=== PATIENT | female | born 1945 | race Caucasian/White ===

== ENCOUNTER 2016-02-23 05:48 | Day surgery (SDC) | payer MEDICARE, OTHER ==
[2016-02-23] VITALS (9 sets, daily range): BP systolic 105–128; BP diastolic 47–99; PULSE 60–69; RESP 12–19; O2SAT 93–99
[~2016-02-23] VITALS: Ht 167.6 cm; Wt 81.9 kg
[~2016-02-23 05:48] MED LIST: ALBU18HF INH; BECL8.7A6 INHALATION; BUTA1CAP16 PO; CHOL100045 PO; CYAN10008 PO; EXCEDRINE MIGRAINE PO; IBUP200C PO; Lactated Ringer's 1,000 ML IV ONE; OMEG-38 PO; RANI150C4 PO; SERAVENT INH; SIMV40TA5 PO
[2016-02-23] MEDS ORDERED: Ropivacaine-PF 0.5% 30 mL Inj ONE (05:49)
[2016-02-23] MEDS ORDERED: Propofol 10,000 mCg/mL 20 mL Inj ONE (05:49)
[2016-02-23] MEDS ORDERED: Lidocaine PF 1% 30 mL Inj ONE (05:49)
[2016-02-23] MEDS ORDERED: Dexamethasone 4 mg/mL Inj ONE (05:49)
[2016-02-23] MEDS ORDERED: Ketamine 10 mg/mL 20 mL Inj ONE (05:49)
[2016-02-23] MEDS ORDERED: Ondansetron 2 mg/mL 2 mL Inj ONE (05:49)
[2016-02-23] MEDS ORDERED: LEVA15HF5 INHALATION (06:13)
[2016-02-23] MEDS ORDERED: Clindamycin 600 mg/50 mL D5W Premix IV ONE (06:56)
[2016-02-23] MEDS ORDERED: HYDR-3797 PO (07:27)
[2016-02-23] MEDS ORDERED: SERT50TA9 PO (07:27)
[2016-02-23] MEDS ORDERED: RIZA5TAB18 PO (07:27)
[2016-02-23] MEDS ORDERED: Bupivacaine-MPF 0.5% W/EPI 30 mL Inj INFILTRATE ONE (07:51)
[2016-02-23] MEDS ORDERED: Lactated Ringer's 1,000 ML IV SCH (08:46)
[2016-02-23] MEDS ORDERED: Lactated Ringer's 500 ML IV PRN (08:46)
--- NOTE | 2016-02-23 08:46 | PCM.HPANE ---
Patient Data Date of Service: Feb 23, 2016 Surgeon Admitting Provider: Attending Provider:Marcelino Mcneill DPM Primary Care Physician:Peggy Hayward Other Provider:Demetrius Blackman Anesthesia Reason for Visit Left Lis Franc Fracture / Dislocation Ht/WT & BMI Height (Feet): 5 Height (Inches): 6 Weight (Kilograms): 81.9 Body Mass Index 29.00 Allergies Coded Allergies: Penicillins (Verified Allergy, Severe, HIVES,SKIN RASH, 02/19/16) gabapentin (Verified Allergy, Severe, RASH, 02/19/16) ibuprofen (Verified Allergy, Severe, STOMACH ISSUES, 02/23/16) codeine (Verified Adverse Reaction, Severe, GI UPSET, 02/19/16) Uncoded Allergies: OPIOIDS (Allergy, Severe, CONSTIPATION, 02/23/16) Past Anesthesia History Anesthesia History: Positive for:: Anesthesia Reactions (PONV), Denies:: Malignant Hyperthermia Diabetes History Hx Diabetes?: No MRSA MRSA: No Medications Hypertension Medication: No Home Meds Incl Beta Kristal: No Reported Medications Sertraline HCl (Sertraline)50 Mg Clmopq73 Mg PO DAILY #90 02/23/16 Hydroxyzine Pamoate (HydrOXYzine Pamoate)25 Mg Ewxreqg11 Mg PO HS #30 02/23/16 Rizatriptan ODT (Rizatriptan)5 Mg Tablet5 Mg PO prn #6 02/23/16 Levalbuterol Tartrate (Xopenex Hfa)15 Gm Hfa.aer.ad2 Puff INHALATION PRN #15 02/23/16 Ranitidine 150 Mg [id number] Mg PO BID Ref 0 02/19/16 Cholecalciferol (Vitamin D3) (Vitamin D)1,000 Unit Capsule1,000 Unit PO DAILY # 1 BOTTLE Ref 0 02/19/16 Cyanocobalamin (Vitamin B-12) (Vitamin B-12)1,000 Mcg Tablet1,000 Mcg PO DAILY 02/19/16 Simvastatin 40 Mg Evfiua70 Mg PO HS 30 Days Ref 0 02/19/16 [Seravent Diskus] No Conflict Check1 Puff INH BID PRN PRN 02/19/16 Beclomethasone Dipropionate (Qvar)8.7 Gm Aer.w.adap2 Puff INHALATION BID #8.7 GM 12/30/16 [place]-3/Dha/Epa/Fish Oil (Fish Oil 1,000 mg Softgel)1 Each Capsule1 Each PO DAILY 02/19/16 Butalbital/Aspirin/Caff 50-325-40 mg (Fiorinal 50-325-40 mg)1 Each Capsule1 Capsule PO Q4H PRN For Headache Ref 0 02/19/16 [Excedrine Migraine] No Conflict Check1 Tab PO Q4-6H PRN PRN 02/19/16 Discontinued Reported Medications Albuterol Sulfate (Ventolin HFA Inhaler)200 Puff/18 Gm Inhaler1 Puff INH Q4 PRN For Wheezing #1 INHALER Ref 0 02/19/16 Ibuprofen 200 Mg [id number] Mg PO QID PRN For Pain Ref 0 02/19/16 History History of ENT Problems?: Yes HEENT History: Positive for:: Cataracts (S/P RT EXTRACTION) Sinus Problem (SEASONAL ALLERGIES) Hx of Heart Problems?: Yes Cardiovascular History: Positive for:: Chest Pain (NOTED IN OLD RECORD...?? ETIOLOGY) Denies:: Heart Murmur Hypertension (HYPERLIPIDEMIA) Hx of Respiratory Problem?: Yes Respiratory History: Positive for:: Asthma Use of Inhalers / NEBS Denies:: Use of C-PAP Machine Hx Neurologic Problems?: Yes Neurological History: Positive for:: Headaches (TRIGGERED BY CERTAIN FOODS) TIA (POSS TIA 03/2013) Other History/Comments denies TIA. States has migrain headache with right facial droop. Has never sought ED visit for this. Always self terminates. Has been stable problem with migrain headaches since mid 40s. Is not associated with extremity weakness. Hx of GI Problems?: Yes Gastrointestinal History: Positive for:: Heartburn Hx of Problems?: No Female Hx: Denies:: Currently Skin History: Denies:: History Skin Disorders? Pressure Ulcers Hx Musculoskeletal Problems?: Yes Musculoskeletal History: Positive for:: Musculoskeletal Trauma (S/P BILAT KNEE SCOPES LT LIS FRANC FX/DISLOCATION=CURRENT PROBLEM) Osteoarthritis Hx of Psycho/Social Problems?: No Hx Surgeries?: Yes (RT GREAT TOENAIL REMOVAL,CTR,RT CATARACT,BILAT KNEE SCOPES) Hx Any Other Health Problems?: Yes Other History: Denies:: Cancer Endocrine Disease Hospitalization Thyroid Disease History Blood Transfusions: Positive for:: Accept Blood Products? Denies:: Blood Transfusions Hx Diabetes: No Hx Alcohol Use: YesAlcoholic Drinks Per Day: 2-4/WEEKHx Substance Use: No Have You Smoked inLast 12 mo: No Stop/Bang S-Snoring: Do You Snore Loudly: No T-Tired: feel tired, fatigued: No O-Obsered: Observed not breath: No P-Blood Pressure: treated: No B- Body Mass Index > 35 kg/m2: No A- Age over 50: Yes N- Neck Large Circumference: No G- Gender Male: No JODI Total Score: 1 JODI Risk Assessment: Low Risk, <3 Yes Risk Assessment Category Category 1A: Patient has history of documented sleep apnea, and HAS NOT received any narcotic, sedative or anesthesia administration during this stay. Category 1B: Patient has history of documented sleep apnea, and HAS received any narcotic , sedative or anesthesia administration during this stay Category 2: Patient has SUSPECTED Obstructive Sleep Apnea, and HAS received any narcotic , sedative or anesthesia administration during this stay. Category 3: Patient has SUSPECTED Obstructive Sleep Apnea and HAS NOT received narcotic, sedative or anesthesia administration during this stay. Category 4: Outpatient in Procedural Areas with known sleep apnea or who screen positive for High Risk via the STOP/BANG questionnaire. Exam Exam Vital Signs Vital Signs Date Time Temp Pulse Resp B/P Pulse Ox O2 Delivery O2 Flow Rate FiO2 02/23/16 06:29 60 18 128/63 98 Room Air General Appearance: Alert, Oriented X3 HEENT/AIRWAY: MP 2 Lungs: Clear to Auscultation Heart: Exam Unremarkable Meds/Labs/Diagnostics Admission Meds Current Medications Lactated Ringer's (Lr) 1,000 ml @ 120 mls/hr Q8H20M ONCE IV Last administered on 02/23/16 06:08; Start 02/23/16 at 05:00; Stop 02/23/16 at 13:19 Clindamycin Phosphate/Dextrose (Cleocin Inj) 600 mg STK-MED ONCE IV Last administered on 02/23/16 08:03; Start 02/23/16 at 06:56; Stop 02/23/16 at 06:57; Status DC Bupivacaine HCl/ Epinephrine Bitart (Sensorcaine-MPF 0.5% W/EPI Inj) 30 ml STK- MED ONCE INFILTRATE Last administered on 02/23/16 07:51; Start 02/23/16 at 07:51 ; Stop 02/23/16 at 08:23; Status DC Plan Impression Patient chart reviewed, patient interviewed and anesthestic plan with risks, benefits, and alternatives discussed, and informed consent obtained. NPO Status: 02/22/16 ASA Physical Status: ASA2 Mod Systemic Disease Anesthetic Plan: GA Bene/Risks/Altern/Consents: Yes HP Complete Prior to Induction: Yes Lopez Florian MD Feb 23, 2016 08:46
[2016-02-23] MEDS ORDERED: Ondansetron 2 mg/mL 2 mL Inj IVPUSH PRN (08:50)
[2016-02-23] MEDS ORDERED: HYDROmorphone 1 mg/mL Inj IVPUSH PRN (08:50)
[2016-02-23] MEDS ORDERED: fentaNYL-PF 50 mCg/mL 2 mL Inj IVPUSH PRN (08:50)
[2016-02-23] MEDS ORDERED: Dexamethasone 4 mg/mL Inj IVPUSH PRN (08:50)
[2016-02-23] MEDS ORDERED: EPHEDrine Sulfate 50 mg/mL Inj IVPUSH PRN (08:50)
[2016-02-23] MEDS ORDERED: Phenylephrine 10,000 mCg/mL Inj IVPUSH PRN (08:50)
[2016-02-23] MEDS ORDERED: MetoCLOpramide 5 mg/mL 2 mL Inj IVPUSH PRN (08:50)
--- NOTE | 2016-02-23 09:42 | PCM.SURGOP ---
Surgical Operative Report Date of Service: Feb 23, 2016 Pre Operative Diagnosis Lisfranc fracture dislocation left foot Metatarsal base fracture left foot Post Operative Diagnosis Same as preoperative diagnoses Procedure: Arthrodesis of the medial cuneiform and second metatarsal base Open reduction internal fixation left midfoot Surgeon and Doweling Machine Operator: Surgeon: Marcelino Mcneill DPM Assistants: None Indication for Procedure Mildly displaced left mid foot fractures and Lisfranc dislocation Findings: Significant laxity of the Lisfranc ligament Procedure Details Patient was identified in the preoperative holding area. All preoperative comorbidities and allergies were identified and thoroughly discussed. The patient was transported to the operating room and placed on the operating room table in the normal supine position. The patient was then prepped and draped in the normal aseptic technique. Attention was first paid to the dorsal aspect of the left midfoot. A linear incision was made approximately 4 cm in length directly overlying the medial aspect of the second tarsometatarsal joint and Lisfranc ligament. Once the initial layer of skin all subcutaneous neurovascular structures were identified and retracted out of the surgical field. Blunt dissection was carried with a Metzenbaum scissor through the extensor retinaculum identifying underlying tendinous and neurovascular structures. The dorsalis pedis artery was identified and retracted laterally. Sharp dissection was carried down with a 15 blade through capsular tissue down to bone which was reflected both medially and laterally exposing the base of the second metatarsal and the lateral aspect of the medial cuneiform. Significant gapping was noted between the medial cuneiform and second metatarsal base with fibrous scar tissue in having this area. A rongeur was utilized to debride this area of all scar tissue. A #2.0 drill bit was then utilized to decorticate the distal lateral aspect of the medial cuneiform and the proximal medial aspect of the second metatarsal base and healthy bleeding bone was noted. Manual reduction of the second metatarsal base was then performed. Screw fixation was placed utilizing a fully threaded 3.5 mm cortical screw 40 mm in length directly across the Lisfranc ligament utilizing intraoperative C-arm x-ray for guidance. Direct visualization of the ligamentous space revealed complete reduction with moderate compression of the dislocation site. Intraoperative C-arm x-ray was then utilized to place a screw from the medial into the intermediate cuneiform utilizing normal lag technique. Mild dorsal angulation is noted of the screw with a single threaded protrusion through the dorsal cortices of the intermediate cuneiform. This screw is not palpable through skin. Reduction of the intercuneiform joint was also noted on intraoperative C-arm x-ray the foot was stressed and no further gapping was noted. This wound was then copiously flushed with normal saline and deep closure was performed utilizing number 3. 0 Vicryl and skin closure was performed utilizing number 3. 0 Prolene. No complications occurred during this procedure. This patient was placed into a dressing consisting of Adaptic sterile 4 x 4 gauze Kerlix and a mildly compressive Metzger compression dressing. Patient was awoken by anesthesia and transported to the operating room with neurovascular status intact. Complications There were no periprocedural complications identified. Surgical Specimen Removed: No Specimen sent to Pathology: No Anesthetic Plan: GA Grafts, Implants: Implants-See Implant Record Output, Estimated Blood Loss: 10 Blood Administration during rios: No Catheters: None Post Operative Plan Ice and elevate left lower extremity Nonweightbearing left lower extremity Follow-up in my office in 1 week Discharged to home when stable Advance diet as tolerated Contact our office with any questions or concerns regarding care Pain medication as needed for severe pain only Marcelino Mcneill DPM Feb 23, 2016 09:42
--- NOTE | 2016-02-23 11:07 | PCM.ANEP2 ---
Post Anesthesia Evaluation ASA/CMS Post Anesthesia VS in Patient's Normal Range?: Yes Resp Stable; Airway Patent?: Yes CV Function & Hydration Stable: Yes Mental Status Recovered?: Yes Pain control Satisfactory?: Yes N/V Control Satisfactory?: Yes Lopez Florian MD Feb 23, 2016 11:07
[2016-06-24] MEDS ORDERED: BECL8.7A6 INHALATION (14:47)
[2016-06-24] MEDS ORDERED: OMEG-38 PO (14:47)
[2016-06-24] MEDS ORDERED: SALM50DI IH (14:47)
[2016-06-24] MEDS ORDERED: SIMV40TA5 PO (14:47)
[2016-06-24] MEDS ORDERED: CYAN500 PO (14:47)
[2016-06-24] MEDS ORDERED: ALBU18HF INH (14:47)
[2016-06-24] MEDS ORDERED: HYDR-656 PO (14:47)
[2016-06-24] MEDS ORDERED: FRNCD30C PO (14:47)
[2016-06-24] MEDS ORDERED: SENN-133 PO (14:47)
[2016-06-24] MEDS ORDERED: LEVA15HF5 IH (14:47)
[2016-06-24] MEDS ORDERED: CHOL10008 PO (14:47)
== END 2016-02-23 23:59 | disposition home or self-care (01) ==
LOC: SAS 05:48
PROVIDERS: ATTEND Podiatrist Foot & Ankle Surgery
DX: S93.325A Dislocation of tarsometatarsal joint of left foot, initial encounter (principal); Y93.9 Activity, unspecified; Y92.9 Unspecified place or not applicable; Z87.891 Personal history of nicotine dependence
CPT/HCPCS: 28615; 76001; 76942; J1100; J2250; J2405; J2795; J7120

== ENCOUNTER 2016-06-28 05:40 | Day surgery (SDC) | payer MEDICARE, OTHER ==
[2016-06-28] VITALS (9 sets, daily range): BP systolic 103–132; BP diastolic 51–63; PULSE 57–69; RESP 7–18; O2SAT 93–99
[~2016-06-28] VITALS: Ht 167.6 cm; Wt 82.1 kg
[~2016-06-28 05:40] MED LIST changes: -BUTA1CAP16 PO; -CHOL100045 PO; +CHOL10008 PO; -CYAN10008 PO; +CYAN500 PO; -EXCEDRINE MIGRAINE PO; +FRNCD30C PO; +HYDR-656 PO; -IBUP200C PO; +LEVA15HF5 IH; -Lactated Ringer's 1,000 ML IV ONE; -RANI150C4 PO; +SALM50DI IH; +SENN-133 PO; -SERAVENT INH
[2016-06-28] MEDS ORDERED: Propofol 10,000 mCg/mL 20 mL Inj ONE (05:41)
[2016-06-28] MEDS ORDERED: Dexamethasone 4 mg/mL Inj ONE (05:41)
[2016-06-28] MEDS ORDERED: Ondansetron 2 mg/mL 2 mL Inj ONE (05:41)
[2016-06-28] MEDS ORDERED: Lidocaine PF 1% 30 mL Inj ONE (05:41)
[2016-06-28] MEDS ORDERED: Vancomycin Inj 1,000 MG in IV Premix 1 EACH IV ONE (06:00)
[2016-06-28] MEDS: Lactated Ringer's 1,000 ML IV SCH ×2 (06:22→07:10)
--- NOTE | 2016-06-28 07:24 | PCM.HPANE ---
Patient Data Date of Service: June 28, 2016 Surgeon Admitting Provider: Attending Provider:Kimberli Del Valle DPM Primary Care Physician:Peggy Hayward Other Provider:Demetrius Blackman Anesthesia Reason for Visit Left Foot Painful Hardware Ht/WT & BMI Height (Feet): 5 Height (Inches): 6 Weight (Kilograms): 82.1 Body Mass Index 29.00 Allergies Coded Allergies: Penicillins (Verified Allergy, Severe, HIVES,SKIN RASH, 02/19/16) gabapentin (Verified Allergy, Severe, RASH, 02/19/16) ibuprofen (Verified Allergy, Severe, STOMACH ISSUES, 02/23/16) prednisone (Verified Allergy, Severe, EXTREME ANXIETY, 06/28/16) CAN NOT TAKE PO, CAN INHALE OR DO INJECTABLE codeine (Verified Adverse Reaction, Severe, GI UPSET, 02/19/16) Uncoded Allergies: OPIOIDS (Allergy, Severe, CONSTIPATION, 02/23/16) Past Anesthesia History Anesthesia History: Positive for:: Anesthesia Reactions (hx of nausea- not with last procedure here), Denies:: Malignant Hyperthermia Diabetes History Hx Diabetes?: No MRSA MRSA: No Medications Hypertension Medication: No Home Meds Incl Beta Kristal: No Reported Medications Sennosides (Senna)8.6 Mg Tablet8.6 Mg PO PRN For Constipation 06/24/16 hydrOXYzine Hcl (HydrOXYzine Hcl)25 Mg Vhjukc02 Mg PO TID PRN For Itching Ref 0 06/24/16 Cholecalciferol (Vitamin D3) (Vitamin D3)1,000 Unit Tab.chew1,000 Unit PO DAILY 06/24/16 Levalbuterol Tartrate (Xopenex Hfa)15 Gm Hfa.aer.ad2 Puff IH Q4 PRN For Shortness of Breath #1 INH 06/24/16 Cyanocobalamin (Vitamin B12)500 Mcg Tablet1,000 Mcg PO DAILY 06/24/16 Butalbital/ASA/Caff/Cod 75-766-43-30 mg (Fiorinal/Codeine 05-104-42-30 mg)1 Each Capsule1 Capsule PO Q4H PRN migraines Ref 0 not to exceed 6caps/24hr 06/24/16 [place]-3/Dha/Epa/Fish Oil (Fish Oil 1,000 mg Softgel)1 Each Capsule1 Each PO DAILY 06/24/16 Albuterol Sulfate (Ventolin HFA Inhaler)200 Puff/18 Gm Inhaler2 Puff INH Q4 PRN For Wheezing #1 INHALER Ref 0 06/24/16 Beclomethasone Dipropionate (Qvar)8.7 Gm Aer.w.adap2 Puff INHALATION BID #8.7 GM 06/24/16 Salmeterol Xinafoate (Serevent Diskus)50 Mcg/Puff Inhaler1,400 Mcg IH BID 06/24/16 Simvastatin 40 Mg Thekag49 Mg PO HS 30 Days Ref 0 06/24/16 Discontinued Reported Medications Sertraline HCl (Sertraline)50 Mg Tkntxn05 Mg PO DAILY #90 02/23/16 Hydroxyzine Pamoate (HydrOXYzine Pamoate)25 Mg Uvuykis26 Mg PO HS #30 02/23/16 Rizatriptan ODT (Rizatriptan)5 Mg Tablet5 Mg PO prn #6 02/23/16 Levalbuterol Tartrate (Xopenex Hfa)15 Gm Hfa.aer.ad2 Puff INHALATION PRN #15 02/23/16 Ranitidine 150 Mg [id number] Mg PO BID Ref 0 02/19/16 Cholecalciferol (Vitamin D3) (Vitamin D)1,000 Unit Capsule1,000 Unit PO DAILY # 1 BOTTLE Ref 0 02/19/16 Cyanocobalamin (Vitamin B-12) (Vitamin B-12)1,000 Mcg Tablet1,000 Mcg PO DAILY 02/19/16 Simvastatin 40 Mg Tcctnh35 Mg PO HS 30 Days Ref 0 02/19/16 [Seravent Diskus] No Conflict Check1 Puff INH BID PRN PRN 02/19/16 Beclomethasone Dipropionate (Qvar)8.7 Gm Aer.w.adap2 Puff INHALATION BID #8.7 GM 02/19/16 [place]-3/Dha/Epa/Fish Oil (Fish Oil 1,000 mg Softgel)1 Each Capsule1 Each PO DAILY 02/19/16 Butalbital/Aspirin/Caff 50-325-40 mg (Fiorinal 50-325-40 mg)1 Each Capsule1 Capsule PO Q4H PRN For Headache Ref 0 02/19/16 [Excedrine Migraine] No Conflict Check1 Tab PO Q4-6H PRN PRN 02/19/16 History History of ENT Problems?: Yes HEENT History: Positive for:: Cataracts (hx of right extraction) Sinus Problem (seasonal allergies) Denture Type: None Teeth Condition: Within Normal Limits Hx of Heart Problems?: Yes Cardiovascular History: Positive for:: Chest Pain (NOTED IN OLD RECORD...?? ETIOLOGY) Denies:: Heart Murmur Hypertension Hx of Respiratory Problem?: Yes Respiratory History: Positive for:: Asthma Use of Inhalers / NEBS Denies:: Oxygen Administration Use of C-PAP Machine Hx Neurologic Problems?: Yes Neurological History: Positive for:: Headaches (has food triggers) Hx of GI Problems?: Yes Hx of Problems?: No Female Hx: Denies:: Currently Skin History: Denies:: History Skin Disorders? Pressure Ulcers Hx Musculoskeletal Problems?: Yes Musculoskeletal History: Positive for:: Musculoskeletal Trauma (left lis franc repair-painful hardware current admission problem) Hx of Psycho/Social Problems?: No Hx Surgeries?: Yes (RT GREAT TOENAIL REMOVAL,CTR,RT CATARACT,BILAT KNEE SCOPES) Hx Any Other Health Problems?: Yes Other History: Denies:: Cancer Endocrine Disease Hospitalization Thyroid Disease History Blood Transfusions: Denies:: Blood Transfusions Hx Diabetes: No Hx Alcohol Use: YesHx Substance Use: No Smoking Status: Unknown if Ever Smoker Have You Smoked inLast 12 mo: No Stop/Bang S-Snoring: Do You Snore Loudly: No T-Tired: feel tired, fatigued: No O-Obsered: Observed not breath: No P-Blood Pressure: treated: No B- Body Mass Index > 35 kg/m2: No A- Age over 50: Yes N- Neck Large Circumference: No G- Gender Male: No JODI Total Score: 1 JODI Risk Assessment: Low Risk, <3 Yes Risk Assessment Category Category 1A: Patient has history of documented sleep apnea, and HAS NOT received any narcotic, sedative or anesthesia administration during this stay. Category 1B: Patient has history of documented sleep apnea, and HAS received any narcotic , sedative or anesthesia administration during this stay Category 2: Patient has SUSPECTED Obstructive Sleep Apnea, and HAS received any narcotic , sedative or anesthesia administration during this stay. Category 3: Patient has SUSPECTED Obstructive Sleep Apnea and HAS NOT received narcotic, sedative or anesthesia administration during this stay. Category 4: Outpatient in Procedural Areas with known sleep apnea or who screen positive for High Risk via the STOP/BANG questionnaire. Exam Exam Vital Signs Vital Signs Date Time Temp Pulse Resp B/P Pulse Ox O2 Delivery O2 Flow Rate FiO2 06/28/16 06:38 36.5 62 16 132/59 99 Room Air General Appearance: Alert, Oriented X3, Cooperative, No Acute Distress HEENT/AIRWAY: MP 2 Lungs: Clear to Auscultation, Normal Air Movement Heart: Exam Unremarkable, Regular Rate/Rhythm, No Murmurs/Rubs/Gallops Meds/Labs/Diagnostics Admission Meds Current Medications Vancomycin/0.9 % Sod Chloride 1000 mg/Premix 200 ml @ 135 mls/hr PREOP ONCE IV Last administered on 06/28/16 06:50; Start 06/28/16 at 06:00; Stop 06/28/16 at 07:28 Lactated Ringer's (Lr) 1,000 ml @ 120 mls/hr Q8H20M IV Last administered on 07:10; Start 06/28/16 at 05:00; Stop 06/28/16 at 13:19 Labs Test 06/28/16 06:30 Plan Impression Patient chart reviewed, patient interviewed and anesthestic plan with risks, benefits, and alternatives discussed, and informed consent obtained. NPO per Anesth. Guidelines: Yes ASA Physical Status: ASA2 Mod Systemic Disease Anesthetic Plan: GA Bene/Risks/Altern/Consents: Yes HP Complete Prior to Induction: Yes Daniele Haque MD June 28, 2016 07:24
[2016-06-28] MEDS ORDERED: Atropine 0.4 mg/mL Inj IVPUSH PRN (07:35)
[2016-06-28] MEDS ORDERED: MetoCLOpramide 5 mg/mL 2 mL Inj IVPUSH PRN (07:35)
[2016-06-28] MEDS ORDERED: hydrALAZINE 20 mg/mL Inj IVPUSH PRN (07:35)
[2016-06-28] MEDS ORDERED: Ondansetron 2 mg/mL 2 mL Inj IVPUSH PRN (07:35)
[2016-06-28] MEDS ORDERED: HYDROmorphone 1 mg/mL Inj IVPUSH PRN (07:35)
[2016-06-28] MEDS ORDERED: fentaNYL-PF 50 mCg/mL 2 mL Inj IVPUSH PRN (07:35)
[2016-06-28] MEDS ORDERED: Lactated Ringer's 500 ML IV PRN (07:35)
[2016-06-28] MEDS ORDERED: EPHEDrine Sulfate 50 mg/mL Inj IVPUSH PRN (07:35)
[2016-06-28] MEDS ORDERED: Lactated Ringer's 1,000 ML IV SCH (07:35)
[2016-06-28] MEDS ORDERED: Phenylephrine 10,000 mCg/mL Inj IVPUSH PRN (07:35)
[2016-06-28] MEDS ORDERED: Labetalol 5 mg/mL 4 mL Inj IV PRN (07:35)
[2016-06-28] MEDS ORDERED: Bupivacaine-MPF 0.5% W/EPI 30 mL Inj INFILTRATE ONE (08:02)
--- NOTE | 2016-06-28 08:20 | PCM.ANEP1 ---
Post Anesthesia Phase 1 PACU Phase 1 Assessment Date of Service: June 28, 2016 Vital Signs 36.8 107/51 16 97% RA Anesthetic Administered: GA Level of Alertness: Sleeping, hard to arouse HERRERA's with Equal Strength: Yes Pain: No Nausea or Vomiting: No Cardiovascular Function and Hy: Yes Oxygen Delivery: Room Air Lungs: Clear to Auscultation, Normal Air Movement Complications: No Follow up Care: No Patient Instructions Provided: Yes Daniele Haque MD June 28, 2016 08:20
[2016-06-28 08:21] LABS: APPEARANCE,URINE CLOUDY (CLEAR,HAZY); COLOR,URINE YELLOW (YELLOW); OCCULT BLOOD,URINE LARGE (NEGATIVE); UROBILINOGEN,URINE NORMAL (NORMAL)
[2016-06-28] MEDS ORDERED: Ketorolac 15 mg/mL Inj IVPUSH PRN (08:30)
--- NOTE | 2016-06-28 08:38 | PCM.PODPO ---
Podiatry Operative Report Date of Service: June 28, 2016 Date of Service June 28, 2016 Pre Operative Diagnosis Pain from implanted hardware, left foot Post Operative Diagnosis Pain from implanted hardware, left foot Procedure Excision of two screws, left foot. Surgeon Surgeon: Kimberli Del Valle DPM Assistants: None Indication for Procedure Pain interfering with shoe gear due to prominent hardware in left foot Findings Both implanted screws showed signs of loosening. Dorsal prominence that was palpated preoperatively is now resolved, as well as the medial prominence. Details of Procedure The patient was identified in the preoperative holding area and brought back to the operating room. She was placed on the operating table in supine position. Timeout protocol was completed. The patient's name and site of surgery were confirmed. Gen. anesthesia was initiated. The left foot was prepped and draped in usual aseptic manner after local anesthetic was injected in the operative area. Fluoroscopy was used to identify each screw head, based on the palpated prominences. An incision was made in a linear fashion on the dorsomedial aspect of the left foot. It was deepened sharply over the screw head, avoiding the tibialis anterior tendon. Both screws were identified and found to be loose. They were extracted in their entirety without any complication. The wound was irrigated with normal saline, deep tissues closed with 4-0 Vicryl suture and subcuticular skin with 4-0 Vicryl suture. Dressing consisted of Steri-Strips, Mccarthy silk, normal saline moistened gauze, dry gauze and Coban. The patient was weaned off of general anesthesia and taken to the recovery room with vital signs stable and vascular status of the left foot intact. Left bundle branch block identified on radiation monitor after surgery. Existing EKG ordered for comparison. Patient experienced headaches, easily controlled with Tylenol. Grafts, Implants: None Complications There were no periprocedural complications identified. Condition Stable Anesthetic Administered: GA Drains: None Catheters: None Output, Estimated Blood Loss: 2 (ml) Blood Admin during surgery: No Surgical Cast or Splint: None Surgical Specimen Removed: No Specimen sent to Pathology: No Post Operative Plan The patient is cleared for weightbearing as tolerated in a postoperative shoe for one week. She has a postoperative follow-up scheduled in 2 weeks. She is to report any symptoms in the meantime. Physical therapy is on hold for 2 weeks. By mouth pain medication has been prescribed prior to the operation. Kimberli Del Valle DPM June 28, 2016 08:38
== END 2016-06-28 23:59 | disposition home or self-care (01) ==
LOC: SAS 05:40
PROVIDERS: ATTEND Podiatrist
DX: T85.848A Pain due to other internal prosthetic devices, implants and grafts, initial encounter (principal); J45.909 Unspecified asthma, uncomplicated; S93.325D Dislocation of tarsometatarsal joint of left foot, subsequent encounter; W10.9XXD Fall (on) (from) unspecified stairs and steps, subsequent encounter; Y92.9 Unspecified place or not applicable
CPT/HCPCS: 20680; 81000; 87086; 87088; 87186; J1100; J1885; J2405; J3370; J7120